=== PATIENT | female | born 1960 | race Hispanic/Latino ===

== ENCOUNTER → 2018-03-07 | Outpatient (CLI) | payer BC ==
--- NOTE | 2018-03-21 08:46 | Diagnostic Imaging Report ---
#[id number] - [id number] #BILATERAL DIGITAL SCREENING MAMMOGRAM WITH CAD: 03/07/2018 Comparison is made to exam dated: 12/03/2014 mammogram - [facility]. Current study contains 4 films. There are scattered fibroglandular elements in both breasts. Current study was also evaluated with a Computer Aided Detection (CAD) system. There are benign calcifications in the right breast. Scar markers on both breasts. No significant masses, calcifications, or other findings are seen in either breast. There has been no significant interval change. IMPRESSION: BENIGN There is no mammographic evidence of malignancy. A 1 year screening mammogram is recommended. The patient will be notified by letter of the results. Ray Bruce Jr., D.O. cw/:03/20/2018 14:41:12 [employer] Consultant: Courtney KNOX)(M), [facility] letter sent: Compared to Prior B9 Mammogram BI-RADS: 2 Benign
== END ==
LOC: MAMMO 09:13
PROVIDERS: ATTEND Family Medicine
DX: Z12.31 Encounter for screening mammogram for malignant neoplasm of breast (principal)
CPT/HCPCS: 77067

== ENCOUNTER → 2020-02-13 | Outpatient (CLI) | payer BC | LOC: MAMMO 11:52 | PROVIDERS: ATTEND Family Medicine | DX: Z12.31 Encounter for screening mammogram for malignant neoplasm of breast (principal) | CPT/HCPCS: 77067 ==

== ENCOUNTER → 2021-08-03 | Emergency (ER) | payer BC | END | disposition left against medical advice (07) | LOC: ER 15:33 | DX: R68.84 Jaw pain (principal) ==

== ENCOUNTER 2022-10-12 10:32 | Inpatient (IN) | payer BC ==
[2022-10-12] VITALS (9 sets, daily range): BP systolic 142–146; BP diastolic 78–79; PULSE 73–84; RESP 18–22; TEMP 98–99; O2SAT 96–99
[~2022-10-12] VITALS: Ht 154.9 cm; Wt 90.7 kg
[2022-10-12] MEDS ORDERED: ALBUTEROL/IPRATROPIUM 3 ML NEB NEB ONE (10:45)
[2022-10-12] MEDS ORDERED: DEXAMETHASONE PHOS 4MG/ML 5ML MULTIDOSE VIAL IV ONE (10:45)
[2022-10-12 10:59] LABS: BASOPHILS # (AUTO) 0.1 (0.0-0.1); BASOPHILS % 0.6 % (0.0-1.0); EOSINOPHILS # (AUTO) 0.1 (0.0-0.4); EOSINOPHILS % 1.1 % (0.0-6.0); HEMATOCRIT 49.8 % (34.2-44.1); HEMOGLOBIN 15.9 g/dL (12.0-16.0); LYMPHOCYTES # (AUTO) 2.1 (1.0-3.2); LYMPHOCYTES % 18.3 % (18.0-39.1); MEAN CORPUSCULAR HEMOGLOBIN 31.2 pg (28-32); MEAN CORPUSCULAR HGB CONC 31.9 g/dL (31-35); MEAN CORPUSCULAR VOLUME 97.8 fL (81-99); MONOCYTES # (AUTO) 0.8 (0.2-0.8); MONOCYTES % 6.9 % (4.4-11.3); NEUTROPHILS # (AUTO) 8.2 (2.1-6.9); NEUTROPHILS % 72.4 % (38.7-80.0); PLATELET COUNT 206 x10e3/uL (140-360); RED BLOOD COUNT 5.09 x10e6/uL (3.6-5.1); RED CELL DISTRIBUTION WIDTH 13.2 % (11.7-14.4)
[2022-10-12] MEDS ORDERED: LOSARTAN POTASS50 MG PO (11:03)
[2022-10-12] MEDS ORDERED: ATORVASTATIN CA10 MG PO (11:03)
[2022-10-12] MEDS ORDERED: METFORMIN HCL500 MG PO (11:07)
[2022-10-12] MEDS ORDERED: ROPINIROLE HCL1 MG PO (11:07)
[2022-10-12] MEDS ORDERED: HYDROCHLOROTHIA25 MG PO (11:07)
[2022-10-12] MEDS ORDERED: DEXAMETHASONE SOD PHOS INJ 4 MG/ML SDV ONE (11:13)
[2022-10-12] MEDS ORDERED: DEXAMETHASONE SOD PHOS INJ 4 MG/ML SDV IV ONE (11:15)
[2022-10-12 11:17] LABS: ANION GAP 14.4 mmol/L (8-16); CREATININE, SERUM 0.66 mg/dL (0.57-1.11); POTASSIUM 4.4 mmol/L (3.5-5.1)
[2022-10-12] MEDS ORDERED: IOPAMIDOL 370 MG/ML 100 ML INFUS..BTL INJ ONE (11:34)
[2022-10-12] MEDS ORDERED: OSELTAMIVIR PHOSPHATE 75 MG CAP PO ONE (12:00)
[2022-10-12] MEDS ORDERED: SODIUM CHLORIDE FLUSH 10 ML SYR INJ PRN (13:45)
[2022-10-12] MEDS ORDERED: DEXTROSE 50% SYRINGE 50 ML IV PRN (16:15)
[2022-10-12] MEDS ORDERED: ASPIRIN81 MG PO (16:30)
[2022-10-12] MEDS: INSULIN REGULAR, HUMAN 100 UNIT/1 ML SQ SCH ×2 (17:08→21:49)
[2022-10-12] MEDS ORDERED: ACETAMINOPHEN 325 MG TAB PO PRN (18:00)
[2022-10-12] MEDS ORDERED: ONDANSETRON HCL INJ 2MG/ML 2ML 2 MG/ML VIAL IV PRN (18:00)
[2022-10-12 19:18] LABS: CREATINE KINASE 47 IU/L (29-168)
[2022-10-12] MEDS: ALBUTEROL SULF 0.083% NEB SOLN 3 ML NEB NEB SCH (19:25)
[2022-10-12] MEDS: OSELTAMIVIR PHOSPHATE 75 MG CAP PO SCH (21:46)
[2022-10-12] MEDS: ATORVASTATIN 10 MG TAB PO SCH (21:46)
[2022-10-13] VITALS (13 sets, daily range): BP systolic 113–140; BP diastolic 69–82; PULSE 64–79; RESP 17–23; TEMP 97.6–99.1; O2SAT 95–100
[2022-10-13] MEDS: ALBUTEROL SULF 0.083% NEB SOLN 3 ML NEB NEB SCH ×4 (00:55→20:10)
[2022-10-13 05:57] LABS: BASOPHILS # (AUTO) 0.1 (0.0-0.1); BASOPHILS % 0.3 % (0.0-1.0); EOSINOPHILS % 0.1 % (0.0-6.0); HEMATOCRIT 46.7 % (34.2-44.1); HEMOGLOBIN 14.6 g/dL (12.0-16.0); LYMPHOCYTES # (AUTO) 1.4 (1.0-3.2); LYMPHOCYTES % 9.1 % (18.0-39.1); MEAN CORPUSCULAR HEMOGLOBIN 31.3 pg (28-32); MEAN CORPUSCULAR HGB CONC 31.3 g/dL (31-35); MEAN CORPUSCULAR VOLUME 100.2 fL (81-99); MONOCYTES # (AUTO) 0.8 (0.2-0.8); MONOCYTES % 5.2 % (4.4-11.3); NEUTROPHILS # (AUTO) 12.5 (2.1-6.9); NEUTROPHILS % 84.4 % (38.7-80.0); PLATELET COUNT 196 x10e3/uL (140-360); RED BLOOD COUNT 4.66 x10e6/uL (3.6-5.1); RED CELL DISTRIBUTION WIDTH 12.8 % (11.7-14.4)
[2022-10-13 06:24] LABS: ANION GAP 12.3 mmol/L (8-16); CALCIUM 10.3 mg/dL (8.4-10.2); CREATININE, SERUM 0.59 mg/dL (0.57-1.11); POTASSIUM 4.3 mmol/L (3.5-5.1)
[2022-10-13] MEDS: INSULIN REGULAR, HUMAN 100 UNIT/1 ML SQ SCH ×4 (08:25→21:34)
[2022-10-13] MEDS: ASPIRIN 81 MG CHEW TAB PO SCH (08:26)
[2022-10-13] MEDS: OSELTAMIVIR PHOSPHATE 75 MG CAP PO SCH ×2 (08:26→17:16)
[2022-10-13] MEDS: LOSARTAN POTASSIUM 100 MG TAB PO SCH (08:27)
[2022-10-13] MEDS: NICOTINE 21 MG/EA PATCH TOP SCH (08:40)
[2022-10-13] MEDS: ATORVASTATIN 10 MG TAB PO SCH (21:31)
[2022-10-14] VITALS (10 sets, daily range): BP systolic 119–150; BP diastolic 68–94; PULSE 58–76; RESP 18–26; TEMP 97.9–98.9; O2SAT 95–99
[2022-10-14] MEDS: ALBUTEROL SULF 0.083% NEB SOLN 3 ML NEB NEB SCH ×4 (00:40→18:30)
[2022-10-14 04:54] LABS: BASOPHILS % 0.4 % (0.0-1.0); EOSINOPHILS # (AUTO) 0.1 (0.0-0.4); EOSINOPHILS % 0.6 % (0.0-6.0); HEMATOCRIT 45.4 % (34.2-44.1); HEMOGLOBIN 14.2 g/dL (12.0-16.0); LYMPHOCYTES # (AUTO) 2.5 (1.0-3.2); LYMPHOCYTES % 22.4 % (18.0-39.1); MEAN CORPUSCULAR HGB CONC 31.3 g/dL (31-35); MEAN CORPUSCULAR VOLUME 99.1 fL (81-99); MONOCYTES # (AUTO) 0.7 (0.2-0.8); MONOCYTES % 6.2 % (4.4-11.3); NEUTROPHILS # (AUTO) 7.7 (2.1-6.9); NEUTROPHILS % 69.6 % (38.7-80.0); PLATELET COUNT 191 x10e3/uL (140-360); RED BLOOD COUNT 4.58 x10e6/uL (3.6-5.1); RED CELL DISTRIBUTION WIDTH 13.3 % (11.7-14.4)
[2022-10-14 05:19] LABS: ANION GAP 11.1 mmol/L (8-16); CALCIUM 10.1 mg/dL (8.4-10.2); CREATININE, SERUM 0.59 mg/dL (0.57-1.11); POTASSIUM 4.1 mmol/L (3.5-5.1)
[2022-10-14 05:41] LABS: THYROID STIMULATING HORMONE 0.713 uIU/mL (0.350-4.940)
[2022-10-14] MEDS: FLUTICASONE PROPIONATE NASAL SPRAY NS SCH ×2 (08:52→16:34)
[2022-10-14] MEDS: OSELTAMIVIR PHOSPHATE 75 MG CAP PO SCH ×2 (08:53→16:34)
[2022-10-14] MEDS: LOSARTAN POTASSIUM 100 MG TAB PO SCH (08:53)
[2022-10-14] MEDS: ASPIRIN 81 MG CHEW TAB PO SCH (08:57)
[2022-10-14] MEDS: NICOTINE 21 MG/EA PATCH TOP SCH (09:00)
[2022-10-14] MEDS: INSULIN REGULAR, HUMAN 100 UNIT/1 ML SQ SCH ×4 (09:05→21:35)
[2022-10-14] MEDS ORDERED: ONDANSETRON HCL 4 MG ORAL DISINTEGRATING TAB PO PRN (09:15)
[2022-10-14] MEDS: LEVOFLOXACIN 500 MG TAB PO SCH (16:34)
[2022-10-14] MEDS ORDERED: ENOXAPARIN SOD INJ 40 MG/0.4 ML SYR SC SCH (17:00)
[2022-10-14] MEDS: ATORVASTATIN 10 MG TAB PO SCH (21:30)
[2022-10-15] VITALS (9 sets, daily range): BP systolic 121–144; BP diastolic 59–91; PULSE 62–78; RESP 18–20; TEMP 97.7–99; O2SAT 95–100
[2022-10-15] MEDS: ALBUTEROL SULF 0.083% NEB SOLN 3 ML NEB NEB SCH ×3 (00:30→13:24)
[2022-10-15] MEDS: FLUTICASONE PROPIONATE NASAL SPRAY NS SCH (09:00)
[2022-10-15] MEDS: ASPIRIN 81 MG CHEW TAB PO SCH (09:36)
[2022-10-15] MEDS: OSELTAMIVIR PHOSPHATE 75 MG CAP PO SCH (09:36)
[2022-10-15] MEDS: LOSARTAN POTASSIUM 100 MG TAB PO SCH (09:36)
[2022-10-15] MEDS: LEVOFLOXACIN 500 MG TAB PO SCH (09:37)
[2022-10-15] MEDS: NICOTINE 21 MG/EA PATCH TOP SCH (09:37)
[2022-10-15] MEDS: INSULIN REGULAR, HUMAN 100 UNIT/1 ML SQ SCH ×2 (09:40→13:08)
[2022-10-15] MEDS ORDERED: LEVOFLOXACIN500 MG PO (16:17)
[2022-10-15] MEDS ORDERED: MUCINEX600 MG PO (16:17)
[2022-10-15] MEDS ORDERED: TAMIFLU75 MG PO (16:17)
== END 2022-10-15 17:48 | disposition home or self-care (01) | DRG 194 ==
LOC: ER 10:37 → ERHOLD 13:47 → MED/SURG3 15:10 → OBSVTOIN 10-14 15:24
PROVIDERS: ADMIT Internal Medicine; ATTEND Internal Medicine
DX: J10.1 Influenza due to other identified influenza virus with other respiratory manifestations (principal); N39.0 Urinary tract infection, site not specified; Z16.12 Extended spectrum beta lactamase (ESBL) resistance; R09.02 Hypoxemia; E78.00 Pure hypercholesterolemia, unspecified; E04.1 Nontoxic single thyroid nodule; F17.200 Nicotine dependence, unspecified, uncomplicated; E66.01 Morbid (severe) obesity due to excess calories; B96.4 Proteus (mirabilis) (morganii) as the cause of diseases classified elsewhere; E11.9 Type 2 diabetes mellitus without complications; I10 Essential (primary) hypertension; E78.5 Hyperlipidemia, unspecified; Z79.82 Long term (current) use of aspirin; Z79.899 Other long term (current) drug therapy; Z20.822 Contact with and (suspected) exposure to COVID-19; Z68.37 Body mass index [BMI] 37.0-37.9, adult
CPT/HCPCS: 36415; 71260; 76536; 80048; 82550; 82948; 83036; 83880; 84443; 84484; 85025; 87040; 87086; 87186; 87400; 93005; 94640; 94760; 94799; 96360; 96372; 99284; G0378; J1100; J1650; Q9967

== ENCOUNTER 2023-05-14 14:24 | Inpatient (IN) | payer BC ==
[2023-05-14] VITALS (8 sets, daily range): BP systolic 95–105; BP diastolic 53–68; PULSE 78–89; RESP 17–22; TEMP 98.7–98.8; O2SAT 92–94
[~2023-05-14] VITALS: Ht 154.9 cm; Wt 93.4 kg
[~2023-05-14 14:24] MED LIST: ADVAIR 250-501 EACH INH; ASPIRIN81 MG PO; ATORVASTATIN CA10 MG PO; DOXYCYCLINE HY100 MG PO; HYDROCHLOROTHIA25 MG PO; LEVOFLOXACIN500 MG PO; LOSARTAN POTASS50 MG PO; METFORMIN HCL500 MG PO; MUCINEX600 MG PO; PREDNISONE20 MG PO; ROPINIROLE HCL1 MG PO; TAMIFLU75 MG PO; VENTOLIN HFA18 GM INH
[2023-05-14 14:59] LABS: BASOPHILS % 0.2 % (0.0-1.0); HEMATOCRIT 58.4 % (34.2-44.1); HEMOGLOBIN 17.6 g/dL (12.0-16.0); LYMPHOCYTES # (AUTO) 0.3 (1.0-3.2); LYMPHOCYTES % 2.7 % (18.0-39.1); MEAN CORPUSCULAR HEMOGLOBIN 29.8 pg (28-32); MEAN CORPUSCULAR HGB CONC 30.1 g/dL (31-35); MONOCYTES # (AUTO) 0.9 (0.2-0.8); MONOCYTES % 7.3 % (4.4-11.3); NEUTROPHILS # (AUTO) 11.4 (2.1-6.9); NEUTROPHILS % 89.2 % (38.7-80.0); PLATELET COUNT 143 x10e3/uL (140-360); RED CELL DISTRIBUTION WIDTH 15.5 % (11.7-14.4)
[2023-05-14] MEDS ORDERED: CEFEPIME 2 GM in SODIUM CHLORIDE 0.9% 100 ML IV ONE (15:00)
[2023-05-14] MEDS ORDERED: METHYLPREDNISOLONE SOD SUCC 125 MG/2ML VIAL IV ONE (15:00)
[2023-05-14] MEDS ORDERED: ALBUTEROL/IPRATROPIUM 3 ML NEB NEB ONE (15:00)
[2023-05-14 15:15] LABS: ALBUMIN 3.7 g/dL (3.5-5.0); ANION GAP 13.1 mmol/L (8-16); BILIRUBIN,TOTAL 1.3 mg/dL (0.2-1.2); CALCIUM 10.8 mg/dL (8.4-10.2); CREATININE, SERUM 0.7 mg/dL (0.57-1.11); POTASSIUM 4.1 mmol/L (3.5-5.1); TOTAL PROTEIN 7.3 g/dL (6.5-8.1)
[2023-05-14] MEDS ORDERED: Vancomycin IV 2 GM in SODIUM CHLORIDE 0.9% 500ML 500 ML IV SCH (15:30)
[2023-05-14] MEDS ORDERED: FUROSEMIDE INJ 10 MG/ML 4 ML VIAL IV ONE (15:45)
[2023-05-14 15:50] LABS: ABG HCO3 41 mmol/L (22-26); ABG PCO2 116 mmHg (35-45); ABG PH 7.16 (7.35-7.45); ABG PO2 64 mmHg (80-105); ABG TCO2 45
[2023-05-14] MEDS ORDERED: ONDANSETRON HCL INJ 2MG/ML 2ML 2 MG/ML VIAL IV PRN (16:15)
[2023-05-14] MEDS ORDERED: SODIUM CHLORIDE FLUSH 10 ML SYR INJ PRN (16:15)
[2023-05-14] MEDS ORDERED: LEVOFLOXACIN 750MG/D5W 150ML 150 ML IV SCH (16:15)
[2023-05-14 18:09] LABS: ABG HCO3 39 mmol/L (22-26); ABG PCO2 107 mmHg (35-45); ABG PH 7.17 (7.35-7.45); ABG PO2 89 mmHg (80-105); ABG TCO2 42
[2023-05-14] MEDS: METHYLPREDNISOLONE SOD SUCC 125 MG/2ML VIAL IV SCH (19:26)
[2023-05-14] MEDS: ALBUTEROL/IPRATROPIUM 3 ML NEB NEB SCH (21:58)
[2023-05-15] VITALS (34 sets, daily range): BP systolic 97–129; BP diastolic 50–78; PULSE 74–107; RESP 17–26; TEMP 98.2–98.8; O2SAT 87–97
[2023-05-15] MEDS: ALBUTEROL/IPRATROPIUM 3 ML NEB NEB SCH ×4 (01:02→18:56)
[2023-05-15 06:52] LABS: BASOPHILS % 0.3 % (0.0-1.0); HEMOGLOBIN 17.1 g/dL (12.0-16.0); LYMPHOCYTES # (AUTO) 0.2 (1.0-3.2); LYMPHOCYTES % 1.5 % (18.0-39.1); MEAN CORPUSCULAR HEMOGLOBIN 29.7 pg (28-32); MONOCYTES # (AUTO) 0.3 (0.2-0.8); MONOCYTES % 2.7 % (4.4-11.3); NEUTROPHILS # (AUTO) 9.3 (2.1-6.9); NEUTROPHILS % 94.7 % (38.7-80.0); PLATELET COUNT 139 x10e3/uL (140-360); RED BLOOD COUNT 5.76 x10e6/uL (3.6-5.1); RED CELL DISTRIBUTION WIDTH 15.5 % (11.7-14.4); WHITE BLOOD COUNT 9.85 x10e3/uL (4.8-10.8)
[2023-05-15 07:15] LABS: ALBUMIN 3.1 g/dL (3.5-5.0); ANION GAP 12.5 mmol/L (8-16); BILIRUBIN,TOTAL 0.7 mg/dL (0.2-1.2); CALCIUM 10.3 mg/dL (8.4-10.2); CREATININE, SERUM 0.68 mg/dL (0.57-1.11); POTASSIUM 4.5 mmol/L (3.5-5.1); TOTAL PROTEIN 6.3 g/dL (6.5-8.1)
[2023-05-15] MEDS: SALMETEROL XINAF/FLUTICASONE 250/50 MCG INHALER INH SCH ×2 (07:30→18:56)
[2023-05-15] MEDS ORDERED: FUROSEMIDE INJ 10 MG/ML 4 ML VIAL IV ONE ×2 (07:45→08:00)
[2023-05-15] MEDS: METHYLPREDNISOLONE SOD SUCC 125 MG/2ML VIAL IV SCH ×2 (08:08→20:07)
[2023-05-15] MEDS: ASPIRIN 81 MG CHEW TAB PO SCH (09:29)
[2023-05-15] MEDS: HYDROCHLOROTHIAZIDE 25 MG TAB PO SCH (09:29)
[2023-05-15] MEDS ORDERED: DEXTROSE 50% SYRINGE 50 ML IV PRN (09:30)
[2023-05-15] MEDS ORDERED: GUAIFENESIN 600 MG TAB PO PRN (09:30)
[2023-05-15] MEDS: INSULIN REGULAR, HUMAN 100 UNIT/1 ML SQ SCH ×3 (11:30→20:22)
[2023-05-15 12:33] LABS: ABG PH 7.22 (7.35-7.45)
[2023-05-15 12:34] LABS: ABG HCO3 44 mmol/L (22-26); ABG PCO2 106 mmHg (35-45); ABG PO2 74 mmHg (80-105); ABG TCO2 47
[2023-05-15] MEDS: ENOXAPARIN SOD INJ 40 MG/0.4 ML SYR SC SCH (16:39)
[2023-05-15] MEDS: ATORVASTATIN 20 MG TAB PO SCH (20:07)
[2023-05-16] VITALS (22 sets, daily range): BP systolic 109–147; BP diastolic 62–93; PULSE 66–96; RESP 18–32; TEMP 98.3–99; O2SAT 83–100
[2023-05-16] MEDS: ALBUTEROL/IPRATROPIUM 3 ML NEB NEB SCH ×4 (01:56→19:17)
[2023-05-16] MEDS: SALMETEROL XINAF/FLUTICASONE 250/50 MCG INHALER INH SCH ×2 (06:38→19:16)
[2023-05-16] MEDS: INSULIN REGULAR, HUMAN 100 UNIT/1 ML SQ SCH ×4 (08:21→20:17)
[2023-05-16] MEDS: METHYLPREDNISOLONE SOD SUCC 125 MG/2ML VIAL IV SCH ×2 (08:36→20:16)
[2023-05-16] MEDS: HYDROCHLOROTHIAZIDE 25 MG TAB PO SCH (08:37)
[2023-05-16] MEDS: ASPIRIN 81 MG CHEW TAB PO SCH (08:37)
[2023-05-16] MEDS: FLUTICASONE PROPIONATE NASAL SPRAY NS SCH ×2 (08:40→16:35)
[2023-05-16 08:56] LABS: ABG PH 7.28 (7.35-7.45)
[2023-05-16 08:57] LABS: ABG HCO3 43 mmol/L (22-26); ABG PCO2 91 mmHg (35-45); ABG PO2 66 mmHg (80-105); ABG TCO2 46
[2023-05-16] MEDS: ENOXAPARIN SOD INJ 40 MG/0.4 ML SYR SC SCH (16:35)
[2023-05-16] MEDS: METFORMIN HCL 500 MG TAB PO SCH (16:35)
[2023-05-16] MEDS: FUROSEMIDE INJ 10 MG/ML 2 ML VIAL IV SCH (16:35)
[2023-05-16] MEDS: ATORVASTATIN 20 MG TAB PO SCH (20:15)
[2023-05-16] MEDS ORDERED: INSULIN GLARGINE 100 UNITS/ML VIAL SQ SCH (21:00)
[2023-05-17] VITALS (33 sets, daily range): BP systolic 135–162; BP diastolic 67–85; PULSE 64–96; RESP 17–29; TEMP 97.3–98.7; O2SAT 84–100
[2023-05-17] MEDS: ALBUTEROL/IPRATROPIUM 3 ML NEB NEB SCH ×5 (01:36→23:57)
[2023-05-17 06:31] LABS: BASOPHILS % 0.1 % (0.0-1.0); HEMATOCRIT 54.5 % (34.2-44.1); HEMOGLOBIN 16.1 g/dL (12.0-16.0); LYMPHOCYTES # (AUTO) 0.4 (1.0-3.2); LYMPHOCYTES % 3.2 % (18.0-39.1); MEAN CORPUSCULAR HEMOGLOBIN 29.8 pg (28-32); MEAN CORPUSCULAR HGB CONC 29.5 g/dL (31-35); MEAN CORPUSCULAR VOLUME 100.7 fL (81-99); MONOCYTES # (AUTO) 0.4 (0.2-0.8); MONOCYTES % 3.5 % (4.4-11.3); NEUTROPHILS # (AUTO) 11.7 (2.1-6.9); NEUTROPHILS % 92.6 % (38.7-80.0); PLATELET COUNT 141 x10e3/uL (140-360); RED BLOOD COUNT 5.41 x10e6/uL (3.6-5.1); RED CELL DISTRIBUTION WIDTH 15.3 % (11.7-14.4); WHITE BLOOD COUNT 12.66 x10e3/uL (4.8-10.8)
[2023-05-17 07:23] LABS: ANION GAP 12.5 mmol/L (8-16); CALCIUM 10.3 mg/dL (8.4-10.2); CREATININE, SERUM 0.67 mg/dL (0.57-1.11); POTASSIUM 4.5 mmol/L (3.5-5.1)
[2023-05-17] MEDS: SALMETEROL XINAF/FLUTICASONE 250/50 MCG INHALER INH SCH ×2 (07:31→19:07)
[2023-05-17] MEDS: INSULIN REGULAR, HUMAN 100 UNIT/1 ML SQ SCH ×4 (07:57→22:35)
[2023-05-17] MEDS: ASPIRIN 81 MG CHEW TAB PO SCH (08:02)
[2023-05-17] MEDS: METHYLPREDNISOLONE SOD SUCC 125 MG/2ML VIAL IV SCH ×2 (08:02→22:15)
[2023-05-17] MEDS: METFORMIN HCL 500 MG TAB PO SCH ×2 (08:02→17:01)
[2023-05-17] MEDS: FUROSEMIDE INJ 10 MG/ML 2 ML VIAL IV SCH (08:02)
[2023-05-17] MEDS: HYDROCHLOROTHIAZIDE 25 MG TAB PO SCH (08:03)
[2023-05-17] MEDS: FLUTICASONE PROPIONATE NASAL SPRAY NS SCH ×2 (09:18→17:01)
[2023-05-17 10:24] LABS: ABG HCO3 48 mmol/L (22-26); ABG PCO2 99 mmHg (35-45); ABG PO2 65 mmHg (80-105); ABG TCO2 50
[2023-05-17] MEDS: ENOXAPARIN SOD INJ 40 MG/0.4 ML SYR SC SCH (16:56)
[2023-05-17] MEDS: ATORVASTATIN 20 MG TAB PO SCH (22:16)
[2023-05-17] MEDS: INSULIN GLARGINE 100 UNITS/ML VIAL SQ SCH (22:36)
[2023-05-18] VITALS (25 sets, daily range): BP systolic 96–162; BP diastolic 63–88; PULSE 63–89; RESP 11–24; TEMP 97.9–98.8; O2SAT 83–100
[2023-05-18 06:29] LABS: BASOPHILS % 0.1 % (0.0-1.0); EOSINOPHILS % 0.1 % (0.0-6.0); HEMATOCRIT 55.3 % (34.2-44.1); HEMOGLOBIN 16.2 g/dL (12.0-16.0); LYMPHOCYTES % 7.7 % (18.0-39.1); MEAN CORPUSCULAR HEMOGLOBIN 29.3 pg (28-32); MEAN CORPUSCULAR HGB CONC 29.3 g/dL (31-35); MEAN CORPUSCULAR VOLUME 100.2 fL (81-99); MONOCYTES # (AUTO) 0.9 (0.2-0.8); MONOCYTES % 6.8 % (4.4-11.3); NEUTROPHILS # (AUTO) 10.5 (2.1-6.9); NEUTROPHILS % 84.8 % (38.7-80.0); PLATELET COUNT 145 x10e3/uL (140-360); RED BLOOD COUNT 5.52 x10e6/uL (3.6-5.1); RED CELL DISTRIBUTION WIDTH 14.9 % (11.7-14.4); WHITE BLOOD COUNT 12.43 x10e3/uL (4.8-10.8)
[2023-05-18] MEDS: ALBUTEROL/IPRATROPIUM 3 ML NEB NEB SCH ×3 (07:10→21:11)
[2023-05-18] MEDS: SALMETEROL XINAF/FLUTICASONE 250/50 MCG INHALER INH SCH ×2 (07:12→21:09)
[2023-05-18] MEDS: INSULIN REGULAR, HUMAN 100 UNIT/1 ML SQ SCH ×4 (07:30→21:19)
[2023-05-18 07:37] LABS: CALCIUM 10.7 mg/dL (8.4-10.2); CREATININE, SERUM 0.59 mg/dL (0.57-1.11)
[2023-05-18] MEDS: FUROSEMIDE INJ 10 MG/ML 2 ML VIAL IV SCH (08:52)
[2023-05-18] MEDS: METHYLPREDNISOLONE SOD SUCC 125 MG/2ML VIAL IV SCH ×2 (08:52→21:02)
[2023-05-18] MEDS: ASPIRIN 81 MG CHEW TAB PO SCH (08:52)
[2023-05-18] MEDS: HYDROCHLOROTHIAZIDE 25 MG TAB PO SCH (08:52)
[2023-05-18] MEDS: METFORMIN HCL 500 MG TAB PO SCH ×2 (08:52→16:44)
[2023-05-18] MEDS: FLUTICASONE PROPIONATE NASAL SPRAY NS SCH ×2 (12:07→16:45)
[2023-05-18] MEDS: ENOXAPARIN SOD INJ 40 MG/0.4 ML SYR SC SCH (16:44)
[2023-05-18] MEDS ORDERED: ONDANSETRON HCL 4 MG ORAL DISINTEGRATING TAB PO PRN (19:45)
[2023-05-18] MEDS: ATORVASTATIN 20 MG TAB PO SCH (21:02)
[2023-05-18] MEDS: INSULIN GLARGINE 100 UNITS/ML VIAL SQ SCH (21:18)
[2023-05-19] VITALS (13 sets, daily range): BP systolic 138–155; BP diastolic 78–88; PULSE 57–93; RESP 17–18; TEMP 97.9–98.8; O2SAT 95–100
[2023-05-19] MEDS: ALBUTEROL/IPRATROPIUM 3 ML NEB NEB SCH ×4 (01:18→18:56)
[2023-05-19] MEDS: SALMETEROL XINAF/FLUTICASONE 250/50 MCG INHALER INH SCH ×2 (07:56→18:56)
[2023-05-19] MEDS: METHYLPREDNISOLONE SOD SUCC 125 MG/2ML VIAL IV SCH ×2 (09:27→20:15)
[2023-05-19] MEDS: FLUTICASONE PROPIONATE NASAL SPRAY NS SCH ×2 (09:27→17:11)
[2023-05-19] MEDS: METFORMIN HCL 500 MG TAB PO SCH ×2 (09:28→17:11)
[2023-05-19] MEDS: FUROSEMIDE INJ 10 MG/ML 2 ML VIAL IV SCH (09:28)
[2023-05-19] MEDS: ASPIRIN 81 MG CHEW TAB PO SCH (09:28)
[2023-05-19] MEDS: HYDROCHLOROTHIAZIDE 25 MG TAB PO SCH (09:28)
[2023-05-19] MEDS: INSULIN REGULAR, HUMAN 100 UNIT/1 ML SQ SCH ×4 (09:43→21:24)
[2023-05-19] MEDS: ENOXAPARIN SOD INJ 40 MG/0.4 ML SYR SC SCH (17:11)
[2023-05-19] MEDS: ATORVASTATIN 20 MG TAB PO SCH (20:15)
[2023-05-19] MEDS: INSULIN GLARGINE 100 UNITS/ML VIAL SQ SCH (21:22)
[2023-05-20] VITALS (11 sets, daily range): BP systolic 139–176; BP diastolic 77–97; PULSE 67–92; RESP 17–22; TEMP 97.2–98.6; O2SAT 95–100
[2023-05-20] MEDS: ALBUTEROL/IPRATROPIUM 3 ML NEB NEB SCH ×4 (01:17→17:27)
[2023-05-20 07:19] LABS: BASOPHILS % 0.1 % (0.0-1.0); HEMATOCRIT 54.6 % (34.2-44.1); HEMOGLOBIN 16.8 g/dL (12.0-16.0); LYMPHOCYTES # (AUTO) 0.5 (1.0-3.2); LYMPHOCYTES % 3.4 % (18.0-39.1); MEAN CORPUSCULAR HEMOGLOBIN 29.7 pg (28-32); MEAN CORPUSCULAR HGB CONC 30.8 g/dL (31-35); MEAN CORPUSCULAR VOLUME 96.6 fL (81-99); MONOCYTES # (AUTO) 0.3 (0.2-0.8); MONOCYTES % 1.7 % (4.4-11.3); NEUTROPHILS # (AUTO) 14.4 (2.1-6.9); NEUTROPHILS % 94.1 % (38.7-80.0); PLATELET COUNT 147 x10e3/uL (140-360); RED BLOOD COUNT 5.65 x10e6/uL (3.6-5.1); RED CELL DISTRIBUTION WIDTH 14.7 % (11.7-14.4); WHITE BLOOD COUNT 15.33 x10e3/uL (4.8-10.8)
[2023-05-20 08:04] LABS: ANION GAP 13.4 mmol/L (8-16); CALCIUM 10.8 mg/dL (8.4-10.2); CREATININE, SERUM 0.68 mg/dL (0.57-1.11); POTASSIUM 4.4 mmol/L (3.5-5.1)
[2023-05-20] MEDS: SALMETEROL XINAF/FLUTICASONE 250/50 MCG INHALER INH SCH ×2 (08:06→17:27)
[2023-05-20] MEDS: ASPIRIN 81 MG CHEW TAB PO SCH (08:30)
[2023-05-20] MEDS: METHYLPREDNISOLONE SOD SUCC 125 MG/2ML VIAL IV SCH (08:31)
[2023-05-20] MEDS: FUROSEMIDE INJ 10 MG/ML 2 ML VIAL IV SCH (08:31)
[2023-05-20] MEDS: HYDROCHLOROTHIAZIDE 25 MG TAB PO SCH (08:31)
[2023-05-20] MEDS: METFORMIN HCL 500 MG TAB PO SCH ×2 (08:31→16:41)
[2023-05-20] MEDS: FLUTICASONE PROPIONATE NASAL SPRAY NS SCH ×2 (08:32→16:41)
[2023-05-20] MEDS: INSULIN REGULAR, HUMAN 100 UNIT/1 ML SQ SCH ×4 (08:38→20:15)
[2023-05-20] MEDS: LOSARTAN POTASSIUM 100 MG TAB PO SCH (12:19)
[2023-05-20] MEDS: ENOXAPARIN SOD INJ 40 MG/0.4 ML SYR SC SCH (16:42)
[2023-05-20] MEDS: ATORVASTATIN 20 MG TAB PO SCH (20:12)
[2023-05-20] MEDS ORDERED: INSULIN GLARGINE 100 UNITS/ML VIAL SQ SCH (21:00)
[2023-05-21] VITALS (10 sets, daily range): BP systolic 131–162; BP diastolic 79–102; PULSE 60–89; RESP 16–22; TEMP 96–98.6; O2SAT 96–100
[2023-05-21] MEDS: ALBUTEROL/IPRATROPIUM 3 ML NEB NEB SCH ×3 (01:32→12:44)
[2023-05-21] MEDS: SALMETEROL XINAF/FLUTICASONE 250/50 MCG INHALER INH SCH (06:34)
[2023-05-21] MEDS: INSULIN REGULAR, HUMAN 100 UNIT/1 ML SQ SCH ×2 (07:30→12:30)
[2023-05-21] MEDS: FLUTICASONE PROPIONATE NASAL SPRAY NS SCH (08:21)
[2023-05-21] MEDS: HYDROCHLOROTHIAZIDE 25 MG TAB PO SCH (08:22)
[2023-05-21] MEDS: METFORMIN HCL 500 MG TAB PO SCH (08:22)
[2023-05-21] MEDS: ASPIRIN 81 MG CHEW TAB PO SCH (08:22)
[2023-05-21] MEDS: LOSARTAN POTASSIUM 100 MG TAB PO SCH (08:23)
[2023-05-21 08:38] LABS: BASOPHILS % 0.1 % (0.0-1.0); EOSINOPHILS # (AUTO) 0.1 (0.0-0.4); EOSINOPHILS % 0.4 % (0.0-6.0); HEMATOCRIT 54.7 % (34.2-44.1); LYMPHOCYTES # (AUTO) 1.4 (1.0-3.2); LYMPHOCYTES % 9.9 % (18.0-39.1); MEAN CORPUSCULAR HEMOGLOBIN 29.8 pg (28-32); MEAN CORPUSCULAR HGB CONC 31.1 g/dL (31-35); MEAN CORPUSCULAR VOLUME 95.8 fL (81-99); MONOCYTES # (AUTO) 0.6 (0.2-0.8); MONOCYTES % 4.3 % (4.4-11.3); NEUTROPHILS # (AUTO) 11.8 (2.1-6.9); NEUTROPHILS % 84.8 % (38.7-80.0); PLATELET COUNT 158 x10e3/uL (140-360); RED BLOOD COUNT 5.71 x10e6/uL (3.6-5.1); RED CELL DISTRIBUTION WIDTH 14.8 % (11.7-14.4); WHITE BLOOD COUNT 13.96 x10e3/uL (4.8-10.8)
[2023-05-21] MEDS ORDERED: METHYLPREDNISOLONE SOD SUCC 125 MG/2ML VIAL IV SCH (09:00)
[2023-05-21] MEDS ORDERED: FUROSEMIDE INJ 10 MG/ML 2 ML VIAL IV SCH (09:00)
[2023-05-21 09:08] LABS: ANION GAP 14.1 mmol/L (8-16); CALCIUM 10.3 mg/dL (8.4-10.2); CREATININE, SERUM 0.55 mg/dL (0.57-1.11); POTASSIUM 4.1 mmol/L (3.5-5.1)
[2023-05-21] MEDS ORDERED: LASIX20 MG PO (11:48)
[2023-05-22] MEDS ORDERED: FUROSEMIDE 20 MG TAB PO SCH (09:00)
== END 2023-05-21 13:42 | disposition home or self-care (01) | DRG 291 ==
LOC: ER 14:43 → ERHOLD 16:17 → ICU 22:27 → MED/SURG2 05-18 18:49
PROVIDERS: ADMIT Internal Medicine; ATTEND Internal Medicine
PROC: 4A033R1 Measurement of Arterial Saturation, Peripheral, Percutaneous Approach (ICD-10-PCS; principal; 2023-05-14)
DX: I11.0 Hypertensive heart disease with heart failure (principal); I50.33 Acute on chronic diastolic (congestive) heart failure; J96.22 Acute and chronic respiratory failure with hypercapnia; J44.1 Chronic obstructive pulmonary disease with (acute) exacerbation; D69.6 Thrombocytopenia, unspecified; J10.1 Influenza due to other identified influenza virus with other respiratory manifestations; E78.00 Pure hypercholesterolemia, unspecified; E66.01 Morbid (severe) obesity due to excess calories; D72.828 Other elevated white blood cell count; F17.200 Nicotine dependence, unspecified, uncomplicated; G47.33 Obstructive sleep apnea (adult) (pediatric); D72.829 Elevated white blood cell count, unspecified; Z79.82 Long term (current) use of aspirin; Z79.84 Long term (current) use of oral hypoglycemic drugs; Z79.899 Other long term (current) drug therapy; Z68.38 Body mass index [BMI] 38.0-38.9, adult; Z20.822 Contact with and (suspected) exposure to COVID-19
CPT/HCPCS: 36415; 36569; 36600; 51700; 71045; 80048; 80053; 82805; 82948; 83880; 84484; 85025; 87400; 93005; 94640; 94660; 94664; 94799; 96372; 99284; J0692; J0696; J1650; J1815; J1940; J2930; J7040; J7050; U0002